=== PATIENT | female | born 1955 | race Caucasian/White ===

== ENCOUNTER 2017-03-01 00:06 | Inpatient (IN) | payer MEDICARE ==
[2017-03-01 00:28] LABS: A-aADO2 121; ARTERIAL BLD GAS O2 SATURATION 93.9 % (95-100); ARTERIAL BLOOD GAS BASE EXCESS 25.6 (-2.0-2.0); ARTERIAL BLOOD GAS FIO2 36 %; ARTERIAL BLOOD GAS PO2 58 mmHg (75-100); ARTERIAL BLOOD GAS pH 7.53 (7.35-7.45)
[2017-03-01 00:29] LABS: ALLEN TEST OK? YES
[2017-03-01 00:34] LABS: Mean Cell Volume 109.8 fl (78-100); Mean Platelet Volume 8.8 fl (6-9.5); Platelet Count 208 K/mm3 (150-450); Red Blood Count 2.87 M/mm3 (4.1-5.4); Red Cell Distribution Width 18.2 % (11.5-14.0); White Blood Count 6.5 K/mm3 (4.0-10.5)
[2017-03-01 00:38] LABS: Mean Corpuscular Hemoglobin 35.1 pg (26-32)
[2017-03-01 00:47] LABS: INR 3.03 (0.8-3.0); PROTIME 34.6 SECONDS (9.95-12.35)
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
[2017-03-01 01:11] LABS: ALBUMIN 1.6 g/dL (3.4-5.0); BILIRUBIN,TOTAL 0.5 mg/dL (0.2-1.0); Total Protein 5.3 gm/dL (6.4-8.2)
[2017-03-01 01:20] LABS: Potassium 2.5 mEq/L (3.5-5.1); TROPONIN 0.061 ng/ml (0.000-0.056)
[2017-03-01] MEDS ORDERED: POTASSIUM CHLORIDE 20 mEq IN WATER 100ML 100 ML IV ONE ×3 (01:20→03:30)
[2017-03-01 01:26] LABS: Carbon Dioxide 42.3 mEq/L (21-32)
[2017-03-01] MEDS ORDERED: Adacel Vial IM ONE ×2 (01:26→01:45)
[2017-03-01 01:30] LABS: ANION GAP 6.1 MEQ/L (5-15)
[2017-03-01 01:34] LABS: Collection Type CATH
[2017-03-01] MEDS ORDERED: Vitamin K 10 MG/ML IM ONE (01:34)
[2017-03-01 01:35] LABS: COMPLETE URINE MICROSCOPIC? YES; Ph 6.5 (5-6)
[2017-03-01 01:36] LABS: Bacteria MANY /HPF (NEGATIVE); Epithelial Cells FEW /HPF (FEW)
[2017-03-01 01:37] LABS: ADD URINE CULTURE? NO (NO)
[2017-03-01] MEDS ORDERED: Magnesium 1 Gm / 100 Ml D5W*** 200 ML IV ONE (01:38)
[2017-03-01] MEDS: Magnesium 1 Gm / 100 Ml D5W*** 100 ML IV SCH ×2 (01:43→02:16)
[2017-03-01] MEDS ORDERED: Unasyn 3GM / NaCl 100ML 3 GM/100 ML IVPB IV STA (01:44)
[2017-03-01] MEDS ORDERED: Vitamin K 10 MG/ML ONE (01:45)
[2017-03-01] MEDS ORDERED: Unasyn 3GM / NaCl 100ML 3 GM/100 ML IVPB ONE (01:51)
[2017-03-01] MEDS ORDERED: THIAMINE 200 MG/2 ML IM ONE (02:06)
[2017-03-01] MEDS ORDERED: Dextrose 5%/Water IV Soln. 250 ML 250 ML IV ONE (02:08)
[2017-03-01] MEDS ORDERED: Zithromax 500 MG/ 250 ML NaCl Premix 500 MG/250 ML IVPB IV STA (02:08)
[2017-03-01] MEDS ORDERED: Acetadote IV 200 MG/ML IV ONE ×3 (02:09→03:07)
[2017-03-01] MEDS ORDERED: THIAMINE 200 MG/2 ML ONE (02:10)
[2017-03-01] MEDS ORDERED: Zithromax 500 MG/ 250 ML NaCl Premix 500 MG/250 ML IVPB IV ONE (02:44)
[2017-03-01] MEDS ORDERED: Lasix 40 MG/4 ML IV ONE (03:02)
[2017-03-01] MEDS ORDERED: Lasix 40 MG/4 ML ONE (03:04)
[2017-03-01] MEDS ORDERED: Dextrose 5%/Water IV Soln. 500 ML 500 ML IV ONE (03:08)
[2017-03-01] MEDS ORDERED: DUONEB 0.5-3 MG/3 ml Neb IH PRN (03:30)
[2017-03-01 03:34] LABS: Total Cells Counted 100
[2017-03-01 03:35] LABS: Platelet Estimate NORMAL (NORMAL)
[2017-03-01] MEDS: Unasyn 1.5GM / NaCl 100ML 1.5 GM/100 ML IVPB IV SCH ×3 (06:38→17:18)
[2017-03-01] MEDS ORDERED: ACETADOTE IV ONE ×3 (06:40→09:00)
[2017-03-01] MEDS ORDERED: DEXTROSE IV ONE ×3 (06:40→09:00)
[2017-03-01] MEDS ORDERED: WATER IV ONE ×3 (06:40→09:00)
[2017-03-01 06:44] LABS: INR 3.18 (0.8-3.0); PROTIME 36.3 SECONDS (9.95-12.35)
[2017-03-01 08:00] LABS: ACETAMINOPHEN 38.2 ug/ml (10-30); ALBUMIN 1.7 g/dL (3.4-5.0); BILIRUBIN,TOTAL 0.4 mg/dL (0.2-1.0); Total Protein 5.1 gm/dL (6.4-8.2)
[2017-03-01 08:02] LABS: Potassium 2.6 mEq/L (3.5-5.1)
[2017-03-01 08:03] LABS: TROPONIN 0.079 ng/ml (0.000-0.056)
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
--- NOTE | 2017-03-01 08:43 | XRAY ---
Indication: Cough. Comparison: April 12, 2016. Portable chest is again underinflated with now diffuse bilateral interstitial alveolar opacities and tiny left effusion. Heart is not enlarged for AP portable technique. Bony thorax intact again with osteopenia and degenerative changes. Impression: New bilateral interstitial alveolar opacities and left effusion.
--- NOTE | 2017-03-01 08:45 | XRAY ---
Indication: Altered mental status. Slurred speech and confusion. Multiple contiguous axial images obtained through the head without contrast. Comparison: April 12, 2016. Stable normal appearing brain parenchyma, ventricles, and bony calvarium. Visualized paranasal sinuses and mastoid air cells are clear. Impression: Stable normal CT head without contrast exam. Comment: Preliminary interpretation was made by [facility]. No discrepancy. CT DI 61.17
[2017-03-01] MEDS: POTASSIUM CHLORIDE 20 mEq IN WATER 100ML 100 ML IV SCH ×4 (09:20→21:39)
[2017-03-01] MEDS: Zithromax 500 MG/ 250 ML NaCl Premix 500 MG/250 ML IVPB IV SCH (09:20)
[2017-03-01] MEDS: FOLATE 1 MG PO SCH (09:21)
[2017-03-01] MEDS: THERAGRAN MULTIVITAMIN PO SCH (09:21)
[2017-03-01] MEDS ORDERED: Sodium Chloride 0.9% 500 ML 500 ML IV SCH (09:30)
[2017-03-01] MEDS: VITAMIN B-1 100 MG PO SCH ×2 (09:31→09:33)
[2017-03-01] MEDS ORDERED: Aldactone 25 MG PO SCH (10:00)
[2017-03-01] MEDS: Vitamin B-12 500 MCG PO SCH (10:27)
--- NOTE | 2017-03-01 13:54 | XRAY ---
Indication: Elevated INR. Cholecystectomy 1996. Two-dimensional right upper quadrant abdominal sonogram performed. Comparison: None Visualized portions of the liver demonstrates mild fatty echogenicity without focal solid/cystic mass or ascites. Liver measures 15.5 cm. Gallbladder surgically absent. No mass or fluid collection in the gallbladder fossa. Common bile duct measures 4 mm. Pancreas not visualized due to overlying bowel gas. Right kidney measures 9.1 cm in length and appears sonographically unremarkable. Impression: Pancreas not visualized. Fatty liver and cholecystectomy in a otherwise negative right upper quadrant sonogram.
[2017-03-01] MEDS ORDERED: Sodium Chloride 0.9% 10 ML FLUSH Syringe IV PRN (14:35)
[2017-03-01] MEDS: SYNTHROID 88 MCG PO SCH (14:37)
--- NOTE | 2017-03-01 16:37 | XRAY ---
Indication: Ultrasound guidance for PICC line placement. Initial sonographic imaging of the right upper extremity was performed for localization of patent veins. A patent basilic vein identified above the elbow. Ultrasound guidance was then used for PICC line insertion. Full PICC line insertion is reported separately.
--- NOTE | 2017-03-01 16:42 | XRAY ---
Indication: Long-term IV access and therapy for pneumonia and decubitus ulcers. Difficulty with venous access. Informed consent obtained. Patient was placed on the fluoroscopic table in a supine position. Initial sonographic imaging of the right upper extremity was performed for localization of patent veins. The right upper extremity was then prepped and draped in sterile fashion. Tourniquet applied. 1% lidocaine plain used for local anesthesia. Using ultrasound guidance and a micropuncture needle, a basilic vein above the elbow was successfully percutaneously cannulized. A floppy tip 0.018 guidewire inserted. Tourniquet released. Needle was exchanged for a 5 [place] dilator peel-away sheath catheter. Ultimately a 5 [place] double-lumen PICC line was inserted over a longer 0.018 guidewire with the tip positioned in the distal SVC using fluoroscopic guidance. Guidewire removed. Both ports flushed with heparinized saline. Catheter was secured. Postoperative instructions and orders given. Patient discharged in good condition. Impression: Technically successful right upper extremity PICC line placement using ultrasound and fluoroscopic guidance. No immediate complications. Approximately 5 cc blood loss. Approximately 0.2 minute of fluoroscopy used.
[2017-03-01] MEDS ORDERED: Magnesium 1 Gm / 100 Ml D5W*** 100 ML IV ONE ×2 (19:35→20:00)
[2017-03-01] MEDS ORDERED: Magnesium Sulfate 1 GM/2 ML VIAL IV ONE (19:45)
[2017-03-01] MEDS: Aldactone 25 MG PO SCH (21:36)
[2017-03-02 00:22] LABS: ALBUMIN 1.3 g/dL (3.4-5.0); BILIRUBIN,TOTAL 0.3 mg/dL (0.2-1.0); Direct Bilirubin 0.17 MG/DL (0.0-0.2); Total Protein 4.6 gm/dL (6.4-8.2)
[2017-03-02] MEDS ORDERED: Lasix 20 MG/2 ML IV ONE ×2 (00:30→02:30)
[2017-03-02 00:50] LABS: A-aADO2 143; ARTERIAL BLD GAS O2 SATURATION 96.1 % (95-100); ARTERIAL BLOOD GAS BASE EXCESS 23.4 (-2.0-2.0); ARTERIAL BLOOD GAS FIO2 40 %; ARTERIAL BLOOD GAS PO2 65 mmHg (75-100); ARTERIAL BLOOD GAS pH 7.51 (7.35-7.45)
[2017-03-02 00:51] LABS: ALLEN TEST OK? YES
[2017-03-02] MEDS ORDERED: Sodium Chloride 0.9% 250 ML 250 ML IV SCH (01:00)
[2017-03-02 01:24] LABS: ALBUMIN 1.4 g/dL (3.4-5.0); ANION GAP 3.8 MEQ/L (5-15); BILIRUBIN,TOTAL 0.4 mg/dL (0.2-1.0); Carbon Dioxide 44.9 mEq/L (21-32); Potassium 3.1 mEq/L (3.5-5.1); Total Protein 4.8 gm/dL (6.4-8.2)
[2017-03-02 01:24] LABS: Mean Corpuscular Hemoglobin 34.4 pg (26-32); Mean Platelet Volume 8.4 fl (6-9.5); Platelet Count 168 K/mm3 (150-450); Red Blood Count 2.47 M/mm3 (4.1-5.4); Red Cell Distribution Width 18.1 % (11.5-14.0); White Blood Count 8.2 K/mm3 (4.0-10.5)
[2017-03-02] MEDS ORDERED: K-LYTE 25 MEQ PO ONE (01:24)
[2017-03-02] MEDS: Unasyn 1.5GM / NaCl 100ML 1.5 GM/100 ML IVPB IV SCH ×4 (01:25→17:27)
--- NOTE | 2017-03-02 01:33 | PCM.NOTE ---
Date and Time: 03/02/17127 Subjective Assessment: Called by nurse several times; pt with little urine out over the past several hours. Crackles heard on lung exam. ABG repeated, basically unchanged. Pt notes her breathing is "not good." - Review of Systems Constitutional: No Fever Respiratory: Cough, Short Of Breath Objective Exam General Appearance: mild distress, other (tachypneic) Neurologic Exam: alert, cooperative Skin Exam: warm, dry Respiratory Exam: diminished breath sounds, crackles/rales (scattered crackles throughout), No wheezing Cardiovascular Exam: regular rate/rhythm, normal heart sounds, No murmur Gastrointestinal/Abdomen Exam: soft, normal bowel sounds, tenderness ( periumbilical, mild), No guarding, No rebound Extremity Exam: swelling (3+ pitting edema to bilat LE and 1+ pitting edema L sided pannus) OBJECTIVE DATA Vital Signs: Vital Signs - 24 hr Temp Pulse Resp BP BP Pulse Ox 03/02/17 00:00 22 03/01/17 23:00 97 H 25 H 105/62 93 L 03/01/17 22:00 97 H 23 92 L 03/01/17 21:12 101 H 20 114/77 93 L 03/01/17 20:00 97.5 F 97 H 20 115/73 91 L 03/01/17 19:15 98 H 25 H 100 03/01/17 17:51 97.8 F 98 H 24 122/74 92 L 03/01/17 16:00 97.8 F 94 H 24 122/74 92 L 03/01/17 14:00 97.6 F 92 H 24 117/74 92 L 03/01/17 12:00 97.6 F 86 24 128/90 92 L 03/01/17 10:00 98.1 F 85 24 125/76 94 L 03/01/17 08:00 98.2 F 85 22 103/71 95 03/01/17 06:00 97.8 F 80 22 117/56 95 03/01/17 04:10 83 27 H 94 L 03/01/17 04:00 83 27 H 94 L 03/01/17 03:47 97.4 F 81 22 99/77 76 L 03/01/17 02:14 76 L 03/01/17 02:02 84 24 122/61 96 03/01/17 01:35 86 26 H 119/64 96 Oxygen-Last 24 hours O2 Percentage 4 Liters = 36% O2 Percentage 4 Liters = 36% O2 Percentage 4 Liters = 36% O2 Percentage 4 Liters = 36% O2 Percentage 3 Liters = 32% O2 Percentage 3 Liters = 32% O2 Percentage 3 Liters = 32% O2 Percentage 3 Liters = 32% O2 Percentage 3 Liters = 32% O2 Percentage 3 Liters = 32% O2 Percentage 3 Liters = 32% O2 Percentage 2 Liters = 28% O2 Percentage 3 Liters = 32% O2 Percentage 3 Liters = 32% Pain Assessment - Last Documented Pain Intensity 0 Pain Scale Used 0-10 Pain Scale Intake and Output: Intake & Output 02/27/17 02/28/17 03/01/17 03/02/17 11:59 11:59 11:59 11:59 Intake Total 1290 2591 Output Total 1100 750 Balance 190 1841 Weight 86.591 kg Lab Results: Lab Results-Last 24 Hours 03/01/17 03/01/17 03/01/17 Range/Units 06:12 06:12 09:15 WBC (4.0-10.5) K/mm3 RBC (4.1-5.4) M/mm3 Hgb (12.0-16.0) gm/dl Hct (35-47) % MCV (78-100) fl MCH (26-32) pg MCHC (32-36) g/dl RDW (11.5-14.0) % Plt Count (150-450) K/mm3 MPV (6-9.5) fl INR 3.18 H (0.8-3.0) Puncture Site pCO2 (35-45) mmHg pO2 (75-100) mmHg Base Excess (-2.0-2.0) O2 Saturation (94-100) g/dF ABG pH (7.35-7.45) ABG HCO3 (22-28) ABG O2 Sat (Measured) (95-100) % Dennis Test A-a Gradient a/A Ratio Hemoglobin Carboxyhemoglobin (0.0-6.9) % THgb Methemoglobin (1.4-1.5) % Temperature C POC O2 Flow Rate % Sodium 144 (136-145) mEq/L Potassium 2.6 L* (3.5-5.1) mEq/L Chloride 95 L (98-107) mEq/L Carbon Dioxide 40.0 H (21-32) mEq/L Anion Gap 13.0 (5-15) MEQ/L BUN 23 H (9-20) mg/dL Creatinine 1.01 (0.55-1.30) mg/dl Estimated GFR 59 ML/MIN Glucose 105 (70-110) MG/DL Lactic Acid (0.4-2.0) Calcium 7.5 L (8.5-10.1) mg/dL Magnesium (1.8-2.4) mg/dL Total Bilirubin 0.40 (0.2-1.0) mg/dL AST 46 H (15-37) U/L ALT 14 (12-78) U/L Alkaline Phosphatase 150 H (46-116) U/L Troponin I 0.079 H* (0.000-0.056) ng/ml Serum Total Protein 5.1 L (6.4-8.2) gm/dL Albumin 1.7 L (3.4-5.0) g/dL TSH 3rd Generation 2.431 (0.358-3.740) mIU/L Acetaminophen 38.2 H (10-30) ug/ml 03/01/17 03/01/17 03/02/17 Range/Units 18:56 23:20 00:45 WBC (4.0-10.5) K/mm3 RBC (4.1-5.4) M/mm3 Hgb (12.0-16.0) gm/dl Hct (35-47) % MCV (78-100) fl MCH (26-32) pg MCHC (32-36) g/dl RDW (11.5-14.0) % Plt Count (150-450) K/mm3 MPV (6-9.5) fl INR (0.8-3.0) Puncture Site pCO2 (35-45) mmHg pO2 (75-100) mmHg Base Excess (-2.0-2.0) O2 Saturation (94-100) g/dF ABG pH (7.35-7.45) ABG HCO3 (22-28) ABG O2 Sat (Measured) (95-100) % Dennis Test A-a Gradient a/A Ratio Hemoglobin Carboxyhemoglobin (0.0-6.9) % THgb Methemoglobin (1.4-1.5) % Temperature C POC O2 Flow Rate % Sodium (136-145) mEq/L Potassium 2.6 L* (3.5-5.1) mEq/L Chloride (98-107) mEq/L Carbon Dioxide (21-32) mEq/L Anion Gap (5-15) MEQ/L BUN (9-20) mg/dL Creatinine (0.55-1.30) mg/dl Estimated GFR ML/MIN Glucose (70-110) MG/DL Lactic Acid (0.4-2.0) Calcium (8.5-10.1) mg/dL Magnesium 2.1 (1.8-2.4) mg/dL Total Bilirubin (0.2-1.0) mg/dL AST (15-37) U/L ALT (12-78) U/L Alkaline Phosphatase (46-116) U/L Troponin I (0.000-0.056) ng/ml Serum Total Protein (6.4-8.2) gm/dL Albumin (3.4-5.0) g/dL TSH 3rd Generation (0.358-3.740) mIU/L Acetaminophen 15.7 (10-30) ug/ml 03/02/17 03/02/17 Range/Units 00:45 01:19 WBC 8.2 (4.0-10.5) K/mm3 RBC 2.47 L (4.1-5.4) M/mm3 Hgb 8.5 L (12.0-16.0) gm/dl Hct 27.9 L (35-47) % MCV 113.0 H (78-100) fl MCH 34.4 H (26-32) pg MCHC 30.5 L (32-36) g/dl RDW 18.1 H (11.5-14.0) % Plt Count 168 (150-450) K/mm3 MPV 8.4 (6-9.5) fl INR (0.8-3.0) Puncture Site LEFT RADIAL pCO2 62 H* (35-45) mmHg pO2 65 L (75-100) mmHg Base Excess 23.4 H (-2.0-2.0) O2 Saturation 92.3 L (94-100) g/dF ABG pH 7.51 H (7.35-7.45) ABG HCO3 49.5 H* (22-28) ABG O2 Sat (Measured) 96.1 (95-100) % Dennis Test YES A-a Gradient 143 a/A Ratio 0.31 Hemoglobin 9.8 Carboxyhemoglobin 3.2 (0.0-6.9) % THgb Methemoglobin 0.9 L (1.4-1.5) % Temperature 37.0 C POC O2 Flow Rate 40 % Sodium (136-145) mEq/L Potassium 3.0 L (3.5-5.1) mEq/L Chloride (98-107) mEq/L Carbon Dioxide (21-32) mEq/L Anion Gap (5-15) MEQ/L BUN (9-20) mg/dL Creatinine (0.55-1.30) mg/dl Estimated GFR ML/MIN Glucose (70-110) MG/DL Lactic Acid 1.0 (0.4-2.0) Calcium (8.5-10.1) mg/dL Magnesium (1.8-2.4) mg/dL Total Bilirubin (0.2-1.0) mg/dL AST (15-37) U/L ALT (12-78) U/L Alkaline Phosphatase (46-116) U/L Troponin I (0.000-0.056) ng/ml Serum Total Protein (6.4-8.2) gm/dL Albumin (3.4-5.0) g/dL TSH 3rd Generation (0.358-3.740) mIU/L Acetaminophen (10-30) ug/ml Radiology Exams: Radiology Procedures Category Date Time Status CHEST 1 VIEW (PORTABLE) Stat Exams 03/02/17 00:39 Ordered GUIDE FOR VASCULAR ACCESS [US] Routine Exams 03/01/17 Completed LIVER OR SPLEEN [US] Routine Exams 03/01/17 07:59 Completed PICC LINE PLACEMENT Routine Exams 03/01/17 14:10 Completed Assessment/Plan (1) Hypoxemia Current Visit: Yes Status: Acute Assessment & Plan: O2 sat to 87% on 4L so O2 increased to 5L. Labs and stat 1-view chest pending. Pt with pneumonia; does have some crackles so small amount of lasix given (20mg IV). May repeat lasix dose x 1 if BP stays over 105 systolic. Code(s): R09.02 - HYPOXEMIA (2) Pneumonia Current Visit: No Status: Acute Qualifiers: Pneumonia type: due to unspecified organism Lung location: unspecified part of lung Assessment & Plan: on IV unasyn and zithromax. Code(s): J18.9 - PNEUMONIA, UNSPECIFIED ORGANISM (3) Oliguria Current Visit: Yes Status: Acute Assessment & Plan: 100 cc out over the past 6 hours; pt does have a oliver catheter. Creatinine was normal. Small amount of lasix. Code(s): R34 - ANURIA AND OLIGURIA (4) Anasarca Current Visit: Yes Status: Acute Code(s): R60.1 - GENERALIZED EDEMA (5) Elevated INR Current Visit: Yes Status: Acute Code(s): R79.1 - ABNORMAL COAGULATION PROFILE (6) UTI (urinary tract infection) Current Visit: Yes Status: Acute Qualifiers: Urinary tract infection type: acute cystitis Code(s): N39.0 - URINARY TRACT INFECTION, SITE NOT SPECIFIED (7) Acetaminophen toxicity Current Visit: Yes Status: Acute Assessment & Plan: Follow up acetaminophen level is wnl. Unsure how much she may have ingested, so will leave decision on mucomyst up to Dr. Mathews. Code(s): T39.1X1A - POISONING BY 4-AMINOPHENOL DERIVATIVES, ACCIDENTAL, INIT
[2017-03-02 01:43] LABS: TROPONIN 0.095 ng/ml (0.000-0.056)
[2017-03-02 05:32] LABS: Mean Cell Volume 113.1 fl (78-100); Mean Corpuscular Hemoglobin 34.2 pg (26-32); Mean Platelet Volume 8.9 fl (6-9.5); Platelet Count 169 K/mm3 (150-450); Red Cell Distribution Width 17.9 % (11.5-14.0); White Blood Count 8.1 K/mm3 (4.0-10.5)
[2017-03-02 06:13] LABS: INR 1.33 (0.8-3.0); PROTIME 15.1 SECONDS (9.95-12.35)
[2017-03-02 06:26] LABS: ALBUMIN 1.3 g/dL (3.4-5.0); ANION GAP 2.4 MEQ/L (5-15); BILIRUBIN,TOTAL 0.4 mg/dL (0.2-1.0); Carbon Dioxide 44.4 mEq/L (21-32); PHOSPHOROUS 1.9 mg/dL (2.6-4.7); Potassium 3.4 mEq/L (3.5-5.1); Total Protein 4.7 gm/dL (6.4-8.2)
[2017-03-02 06:41] LABS: TROPONIN 0.104 ng/ml (0.000-0.056)
[2017-03-02 07:28] LABS: TYPE OF TEST RANDOM
[2017-03-02] MEDS ORDERED: POTASSIUM CHLORIDE 20 mEq IN WATER 100ML 100 ML IV ONE (07:46)
--- NOTE | 2017-03-02 07:50 | PCM.NOTE ---
Date and Time: 03/02/17 0750 Subjective Assessment: she is doing a little better today. She had difficulty last night with the breathing after the fluids from the Mucomyst her output has been low. Her bp has done better we are starting to get her K better she has some cramping in her legs and is eating a little better now. still very weak voice is improving. Objective Exam General Appearance: alert, other (severe anasarca pitting edema throughout her body) Neurologic Exam: oriented x 3, cooperative Skin Exam: warm, dry, pale Eye Exam: pale conjunctivae, No scleral icterus Ears, Nose, Throat Exam: moist mucous membranes Neck Exam: non-tender, supple Respiratory Exam: crackles/rales Cardiovascular Exam: regular rate/rhythm Gastrointestinal/Abdomen Exam: soft, normal bowel sounds, No tenderness Extremity Exam: pedal edema OBJECTIVE DATA Vital Signs: Vital Signs - 24 hr Temp Pulse Resp BP BP Pulse Ox 03/02/17 07:32 98 03/02/17 07:24 94 H 24 03/02/17 07:03 96 H 22 97 03/02/17 06:35 97.6 F 97 H 26 H 120/63 95 03/02/17 05:37 97 H 25 H 120/75 94 L 03/02/17 05:05 98 H 22 112/65 93 L 03/02/17 04:55 88 L 03/02/17 04:54 22 90 L 03/02/17 04:43 97 H 03/02/17 04:41 97.7 F 97 H 28 H 102/68 89 L 03/02/17 04:38 24 03/02/17 02:40 97 H 25 H 114/68 97 03/02/17 02:17 95 H 21 118/61 96 03/02/17 01:30 95 H 25 H 98/69 95 03/02/17 01:00 98.6 F 96 H 21 118/61 91 L 03/02/17 00:22 96 H 24 96/72 91 L 03/02/17 00:01 95 H 03/02/17 00:00 97 H 28 H 95/60 96 03/01/17 23:00 97 H 25 H 105/62 93 L 03/01/17 22:00 97 H 23 92 L 03/01/17 21:12 101 H 20 114/77 93 L 03/01/17 20:00 97.5 F 97 H 20 115/73 91 L 03/01/17 19:15 98 H 25 H 100 03/01/17 17:51 97.8 F 98 H 24 122/74 92 L 03/01/17 16:00 97.8 F 94 H 24 122/74 92 L 03/01/17 14:00 97.6 F 92 H 24 117/74 92 L 03/01/17 12:00 97.6 F 86 24 128/90 92 L 03/01/17 10:00 98.1 F 85 24 125/76 94 L 03/01/17 08:00 98.2 F 85 22 103/71 95 Oxygen-Last 24 hours O2 Percentage 6 Liters = 44% O2 Percentage 6 Liters = 44% O2 Percentage 6 Liters = 44% O2 Percentage 5 Liters = 40% O2 Percentage 5 Liters = 40% O2 Percentage 5 Liters = 40% O2 Percentage 5 Liters = 40% O2 Percentage 4 Liters = 36% O2 Percentage 4 Liters = 36% O2 Percentage 4 Liters = 36% O2 Percentage 4 Liters = 36% O2 Percentage 4 Liters = 36% O2 Percentage 3 Liters = 32% O2 Percentage 3 Liters = 32% O2 Percentage 3 Liters = 32% O2 Percentage 3 Liters = 32% O2 Percentage 3 Liters = 32% O2 Percentage 3 Liters = 32% Pain Assessment - Last Documented Pain Intensity 0 Pain Scale Used 0-10 Pain Scale Intake and Output: Intake & Output 02/27/17 02/28/17 03/01/17 03/02/17 11:59 11:59 11:59 11:59 Intake Total 1290 3241 Output Total 1100 1140 Balance 190 2101 Weight 86.591 kg 89.1 kg Lab Results: Lab Results-Last 24 Hours 03/01/17 03/01/17 03/01/17 Range/Units 06:12 09:15 09:15 WBC (4.0-10.5) K/mm3 RBC (4.1-5.4) M/mm3 Hgb (12.0-16.0) gm/dl Hct (35-47) % MCV (78-100) fl MCH (26-32) pg MCHC (32-36) g/dl RDW (11.5-14.0) % Plt Count (150-450) K/mm3 MPV (6-9.5) fl INR (0.8-3.0) Puncture Site pCO2 (35-45) mmHg pO2 (75-100) mmHg Base Excess (-2.0-2.0) O2 Saturation (94-100) g/dF ABG pH (7.35-7.45) ABG HCO3 (22-28) ABG O2 Sat (Measured) (95-100) % Dennis Test A-a Gradient a/A Ratio Hemoglobin Carboxyhemoglobin (0.0-6.9) % THgb Methemoglobin (1.4-1.5) % Temperature C POC O2 Flow Rate % Sodium 144 (136-145) mEq/L Potassium 2.6 L* (3.5-5.1) mEq/L Chloride 95 L (98-107) mEq/L Carbon Dioxide 40.0 H (21-32) mEq/L Anion Gap 13.0 (5-15) MEQ/L BUN 23 H (9-20) mg/dL Creatinine 1.01 (0.55-1.30) mg/dl Estimated GFR 59 ML/MIN Glucose 105 (70-110) MG/DL Lactic Acid (0.4-2.0) Calcium 7.5 L (8.5-10.1) mg/dL Phosphorus (2.6-4.7) mg/dL Magnesium (1.8-2.4) mg/dL Total Bilirubin 0.40 (0.2-1.0) mg/dL AST 46 H (15-37) U/L ALT 14 (12-78) U/L Alkaline Phosphatase 150 H (46-116) U/L Troponin I 0.079 H* (0.000-0.056) ng/ml NT-Pro-B Natriuret Pep (0-125) pg/ml Serum Total Protein 5.1 L (6.4-8.2) gm/dL Albumin 1.7 L (3.4-5.0) g/dL TSH 3rd Generation 2.431 (0.358-3.740) mIU/L Total Cortisol 19.7 (4.0-25.0) mcg/dL Acetaminophen 38.2 H (10-30) ug/ml 03/01/17 03/01/17 03/02/17 Range/Units 18:56 23:20 00:45 WBC (4.0-10.5) K/mm3 RBC (4.1-5.4) M/mm3 Hgb (12.0-16.0) gm/dl Hct (35-47) % MCV (78-100) fl MCH (26-32) pg MCHC (32-36) g/dl RDW (11.5-14.0) % Plt Count (150-450) K/mm3 MPV (6-9.5) fl INR (0.8-3.0) Puncture Site pCO2 (35-45) mmHg pO2 (75-100) mmHg Base Excess (-2.0-2.0) O2 Saturation (94-100) g/dF ABG pH (7.35-7.45) ABG HCO3 (22-28) ABG O2 Sat (Measured) (95-100) % Dennis Test A-a Gradient a/A Ratio Hemoglobin Carboxyhemoglobin (0.0-6.9) % THgb Methemoglobin (1.4-1.5) % Temperature C POC O2 Flow Rate % Sodium (136-145) mEq/L Potassium 2.6 L* (3.5-5.1) mEq/L Chloride (98-107) mEq/L Carbon Dioxide (21-32) mEq/L Anion Gap (5-15) MEQ/L BUN (9-20) mg/dL Creatinine (0.55-1.30) mg/dl Estimated GFR ML/MIN Glucose (70-110) MG/DL Lactic Acid (0.4-2.0) Calcium (8.5-10.1) mg/dL Phosphorus (2.6-4.7) mg/dL Magnesium 2.1 (1.8-2.4) mg/dL Total Bilirubin (0.2-1.0) mg/dL AST (15-37) U/L ALT (12-78) U/L Alkaline Phosphatase (46-116) U/L Troponin I (0.000-0.056) ng/ml NT-Pro-B Natriuret Pep (0-125) pg/ml Serum Total Protein (6.4-8.2) gm/dL Albumin (3.4-5.0) g/dL TSH 3rd Generation (0.358-3.740) mIU/L Total Cortisol (4.0-25.0) mcg/dL Acetaminophen 15.7 (10-30) ug/ml 03/02/17 03/02/17 03/02/17 Range/Units 00:45 00:45 01:19 WBC 8.2 (4.0-10.5) K/mm3 RBC 2.47 L (4.1-5.4) M/mm3 Hgb 8.5 L (12.0-16.0) gm/dl Hct 27.9 L (35-47) % MCV 113.0 H (78-100) fl MCH 34.4 H (26-32) pg MCHC 30.5 L (32-36) g/dl RDW 18.1 H (11.5-14.0) % Plt Count 168 (150-450) K/mm3 MPV 8.4 (6-9.5) fl INR (0.8-3.0) Puncture Site LEFT RADIAL pCO2 62 H* (35-45) mmHg pO2 65 L (75-100) mmHg Base Excess 23.4 H (-2.0-2.0) O2 Saturation 92.3 L (94-100) g/dF ABG pH 7.51 H (7.35-7.45) ABG HCO3 49.5 H* (22-28) ABG O2 Sat (Measured) 96.1 (95-100) % Dennis Test YES A-a Gradient 143 a/A Ratio 0.31 Hemoglobin 9.8 Carboxyhemoglobin 3.2 (0.0-6.9) % THgb Methemoglobin 0.9 L (1.4-1.5) % Temperature 37.0 C POC O2 Flow Rate 40 % Sodium 142 (136-145) mEq/L Potassium 3.0 L 3.1 L (3.5-5.1) mEq/L Chloride 96 L (98-107) mEq/L Carbon Dioxide 44.9 H (21-32) mEq/L Anion Gap 3.8 L (5-15) MEQ/L BUN 20 (9-20) mg/dL Creatinine 1.20 (0.55-1.30) mg/dl Estimated GFR 48 ML/MIN Glucose 118 H (70-110) MG/DL Lactic Acid 1.0 (0.4-2.0) Calcium 7.5 L (8.5-10.1) mg/dL Phosphorus (2.6-4.7) mg/dL Magnesium (1.8-2.4) mg/dL Total Bilirubin 0.40 (0.2-1.0) mg/dL AST 38 H (15-37) U/L ALT 12 (12-78) U/L Alkaline Phosphatase 140 H (46-116) U/L Troponin I 0.095 H* (0.000-0.056) ng/ml NT-Pro-B Natriuret Pep (0-125) pg/ml Serum Total Protein 4.8 L (6.4-8.2) gm/dL Albumin 1.4 L (3.4-5.0) g/dL TSH 3rd Generation (0.358-3.740) mIU/L Total Cortisol (4.0-25.0) mcg/dL Acetaminophen (10-30) ug/ml 03/02/17 03/02/17 03/02/17 Range/Units 05:20 05:20 05:20 WBC 8.1 (4.0-10.5) K/mm3 RBC 2.60 L (4.1-5.4) M/mm3 Hgb 8.9 L (12.0-16.0) gm/dl Hct 29.4 L (35-47) % MCV 113.1 H (78-100) fl MCH 34.2 H (26-32) pg MCHC 30.3 L (32-36) g/dl RDW 17.9 H (11.5-14.0) % Plt Count 169 (150-450) K/mm3 MPV 8.9 (6-9.5) fl INR 1.33 (0.8-3.0) Puncture Site pCO2 (35-45) mmHg pO2 (75-100) mmHg Base Excess (-2.0-2.0) O2 Saturation (94-100) g/dF ABG pH (7.35-7.45) ABG HCO3 (22-28) ABG O2 Sat (Measured) (95-100) % Dennis Test A-a Gradient a/A Ratio Hemoglobin Carboxyhemoglobin (0.0-6.9) % THgb Methemoglobin (1.4-1.5) % Temperature C POC O2 Flow Rate % Sodium 141 (136-145) mEq/L Potassium 3.4 L (3.5-5.1) mEq/L Chloride 98 (98-107) mEq/L Carbon Dioxide 44.4 H (21-32) mEq/L Anion Gap 2.4 L (5-15) MEQ/L BUN 21 H (9-20) mg/dL Creatinine 1.23 (0.55-1.30) mg/dl Estimated GFR 47 ML/MIN Glucose 95 (70-110) MG/DL Lactic Acid (0.4-2.0) Calcium 7.4 L (8.5-10.1) mg/dL Phosphorus 1.9 L (2.6-4.7) mg/dL Magnesium 2.0 (1.8-2.4) mg/dL Total Bilirubin 0.40 (0.2-1.0) mg/dL AST 36 (15-37) U/L ALT 11 L (12-78) U/L Alkaline Phosphatase 130 H (46-116) U/L Troponin I 0.104 H* (0.000-0.056) ng/ml NT-Pro-B Natriuret Pep (0-125) pg/ml Serum Total Protein 4.7 L (6.4-8.2) gm/dL Albumin 1.3 L (3.4-5.0) g/dL TSH 3rd Generation (0.358-3.740) mIU/L Total Cortisol (4.0-25.0) mcg/dL Acetaminophen (10-30) ug/ml // Range/Units 05:20 WBC (4.0-10.5) K/mm3 RBC (4.1-5.4) M/mm3 Hgb (12.0-16.0) gm/dl Hct (35-47) % MCV (78-100) fl MCH (26-32) pg MCHC (32-36) g/dl RDW (11.5-14.0) % Plt Count (150-450) K/mm3 MPV (6-9.5) fl INR (0.8-3.0) Puncture Site pCO2 (35-45) mmHg pO2 (75-100) mmHg Base Excess (-2.0-2.0) O2 Saturation (94-100) g/dF ABG pH (7.35-7.45) ABG HCO3 (22-28) ABG O2 Sat (Measured) (95-100) % Dennis Test A-a Gradient a/A Ratio Hemoglobin Carboxyhemoglobin (0.0-6.9) % THgb Methemoglobin (1.4-1.5) % Temperature C POC O2 Flow Rate % Sodium (136-145) mEq/L Potassium (3.5-5.1) mEq/L Chloride (98-107) mEq/L Carbon Dioxide (21-32) mEq/L Anion Gap (5-15) MEQ/L BUN (9-20) mg/dL Creatinine (0.55-1.30) mg/dl Estimated GFR ML/MIN Glucose (70-110) MG/DL Lactic Acid (0.4-2.0) Calcium (8.5-10.1) mg/dL Phosphorus (2.6-4.7) mg/dL Magnesium (1.8-2.4) mg/dL Total Bilirubin (0.2-1.0) mg/dL AST (15-37) U/L ALT (12-78) U/L Alkaline Phosphatase (46-116) U/L Troponin I (0.000-0.056) ng/ml NT-Pro-B Natriuret Pep 9177 H (0-125) pg/ml Serum Total Protein (6.4-8.2) gm/dL Albumin (3.4-5.0) g/dL TSH 3rd Generation (0.358-3.740) mIU/L Total Cortisol (4.0-25.0) mcg/dL Acetaminophen (10-30) ug/ml Radiology Exams: Radiology Procedures Category Date Time Status CHEST 1 VIEW (PORTABLE) Stat Exams 03/02/17 00:39 Taken GUIDE FOR VASCULAR ACCESS [US] Routine Exams 03/01/17 Completed LIVER OR SPLEEN [US] Routine Exams 03/01/17 07:59 Completed PICC LINE PLACEMENT Routine Exams 03/01/17 14:10 Completed Assessment/Plan (1) Malnutrition Current Visit: Yes Status: Acute Assessment & Plan: she is eating better today inr better with the vitamin k completed the mucomyst treatmetn for concern for apap toxicity and alt still normal k randy felton the aldactone and supplements. Will work on continued sodium restriction K supplement add Lasix now that k better if no signifianct output will need to start albumin infusions and work on diuresis Code(s): E46 - UNSPECIFIED PROTEIN-CALORIE MALNUTRITION (2) UTI (urinary tract infection) Current Visit: Yes Status: Acute Qualifiers: Urinary tract infection type: acute cystitis Code(s): N39.0 - URINARY TRACT INFECTION, SITE NOT SPECIFIED (3) Anasarca Current Visit: Yes Status: Acute Code(s): R60.1 - GENERALIZED EDEMA (4) Elevated INR Current Visit: Yes Status: Acute Code(s): R79.1 - ABNORMAL COAGULATION PROFILE (5) Elevated troponin Current Visit: Yes Status: Acute Code(s): R74.8 - ABNORMAL LEVELS OF OTHER SERUM ENZYMES (6) Hypokalemia Current Visit: Yes Status: Acute Code(s): E87.6 - HYPOKALEMIA (7) Hypomagnesemia Current Visit: Yes Status: Acute Code(s): E83.42 - HYPOMAGNESEMIA (8) Hypoxemia Current Visit: Yes Status: Acute Code(s): R09.02 - HYPOXEMIA (9) Acetaminophen toxicity Current Visit: Yes Status: Acute Code(s): T39.1X1A - POISONING BY 4- AMINOPHENOL DERIVATIVES, ACCIDENTAL, INIT (10) Anemia Current Visit: Yes Status: Acute Code(s): D64.9 - ANEMIA, UNSPECIFIED (11) Pressure ulcer Current Visit: Yes Status: Acute Qualifiers: Pressure ulcer location: sacral region Code(s): L89.90 - PRESSURE ULCER OF UNSPECIFIED SITE, UNSPECIFIED STAGE
[2017-03-02] MEDS: Lasix 20 MG/2 ML IV SCH ×3 (08:35→20:26)
--- NOTE | 2017-03-02 09:13 | XRAY ---
Indication: Tachypnea. Comparison: One day earlier. Portable chest again underinflated with diffuse bilateral interstitial alveolar opacities slightly worsened in the right lung with stable left effusion. Heart is not enlarged. New right arm PICC line with the tip projecting over the SVC. Comment: Preliminary interpretation was made by [facility]. No discrepancy.
[2017-03-02] MEDS: Aldactone 25 MG PO SCH ×2 (10:05→21:50)
[2017-03-02] MEDS: Vitamin B-12 500 MCG PO SCH (10:05)
[2017-03-02] MEDS: SYNTHROID 88 MCG PO SCH (10:05)
[2017-03-02] MEDS: THERAGRAN MULTIVITAMIN PO SCH (10:05)
[2017-03-02] MEDS: FOLATE 1 MG PO SCH (10:05)
[2017-03-02] MEDS: Zithromax 500 MG/ 250 ML NaCl Premix 500 MG/250 ML IVPB IV SCH (10:05)
[2017-03-02 10:57] LABS: Eosinophil 1 % (0.00-3.0); Total Cells Counted 100
[2017-03-02 11:01] LABS: ANISOCYTOSIS 1+; Platelet Estimate NORMAL (NORMAL); Poikilocytosis 1+
[2017-03-02 11:51] LABS: Mean Cell Volume 113.7 fl (78-100); Mean Corpuscular Hemoglobin 34.5 pg (26-32); Mean Platelet Volume 8.8 fl (6-9.5); Platelet Count 168 K/mm3 (150-450); Red Blood Count 2.55 M/mm3 (4.1-5.4); White Blood Count 7.2 K/mm3 (4.0-10.5)
[2017-03-02 11:54] LABS: ANION GAP 2.8 MEQ/L (5-15); Carbon Dioxide 43.9 mEq/L (21-32); Potassium 3.3 mEq/L (3.5-5.1)
[2017-03-02] MEDS ORDERED: Klor Con 10 MEQ PO ONE (12:57)
[2017-03-02] MEDS: TYLENOL 325 MG PO PRN (14:22)
[2017-03-02] MEDS ORDERED: AlbuRx 25% 50ML VIAL IV ONE (17:55)
[2017-03-02 18:54] LABS: ANION GAP 1.5 MEQ/L (5-15); Carbon Dioxide 44.8 mEq/L (21-32); Potassium 3.9 mEq/L (3.5-5.1)
[2017-03-02] MEDS: Tums EX 750 MG PO PRN (21:51)
[2017-03-02] MEDS: Protonix 40MG Tablet PO SCH (21:51)
[2017-03-03] MEDS: Unasyn 1.5GM / NaCl 100ML 1.5 GM/100 ML IVPB IV SCH ×3 (00:39→12:29)
[2017-03-03] MEDS: Lasix 20 MG/2 ML IV SCH (01:58)
[2017-03-03 05:25] LABS: INR 1.29 (0.8-3.0); PROTIME 14.6 SECONDS (9.95-12.35)
[2017-03-03 05:43] LABS: Mean Cell Volume 114.8 fl (78-100); Mean Corpuscular Hemoglobin 34.4 pg (26-32); Mean Platelet Volume 9.2 fl (6-9.5); Platelet Count 130 K/mm3 (150-450); Red Cell Distribution Width 17.8 % (11.5-14.0); White Blood Count 7.4 K/mm3 (4.0-10.5)
[2017-03-03] MEDS: TYLENOL 325 MG PO PRN (05:48)
[2017-03-03 05:52] LABS: ALBUMIN 1.4 g/dL (3.4-5.0); ALKALINE PHOSPHATASE 100 U/L (46-116); BLOOD UREA NITROGEN 21 mg/dL (9-20); CHLORIDE 99 mEq/L (98-107); Glucose 82 MG/DL (70-110); MAGNESIUM 1.6 mg/dL (1.8-2.4); Potassium 4.1 mEq/L (3.5-5.1); SGOT/AST 32 U/L (15-37); SGPT/ALT 10 U/L (12-78); SODIUM 142 mEq/L (136-145); Total Protein 4.2 gm/dL (6.4-8.2)
[2017-03-03 06:30] LABS: Red Blood Count 1.83 M/mm3 (4.1-5.4)
[2017-03-03 06:42] LABS: Carbon Dioxide > 45.0 mEq/L (21-32)
[2017-03-03] MEDS ORDERED: NORCO 5/325 MG PO ONE (06:50)
[2017-03-03] MEDS ORDERED: Sodium Chloride 0.9% 500 ML 500 ML IV ONE (06:55)
[2017-03-03] MEDS ORDERED: AlbuRx 25% 50ML VIAL IV ONE ×2 (07:26→21:00)
[2017-03-03] MEDS: Lasix 40 MG/4 ML IV SCH ×3 (07:52→20:12)
[2017-03-03] MEDS ORDERED: Cathflo Activase 2 MG IV ONE (08:30)
[2017-03-03] MEDS: Zithromax 500 MG/ 250 ML NaCl Premix 500 MG/250 ML IVPB IV SCH (09:33)
[2017-03-03] MEDS: Aldactone 25 MG PO SCH ×2 (09:33→21:28)
[2017-03-03] MEDS: FOLATE 1 MG PO SCH (09:33)
[2017-03-03] MEDS: THERAGRAN MULTIVITAMIN PO SCH (09:33)
[2017-03-03] MEDS: SYNTHROID 88 MCG PO SCH (09:34)
[2017-03-03] MEDS: Vitamin B-12 500 MCG PO SCH (09:34)
[2017-03-03] MEDS: VITAMIN B-1 100 MG PO SCH (09:34)
[2017-03-03] MEDS: Levofloxacin 250MG Tablet PO SCH (13:31)
[2017-03-03] MEDS ORDERED: Lasix 20 MG/2 ML IV ONE (14:00)
[2017-03-03 17:05] LABS: ALBUMIN 1.7 g/dL (3.4-5.0); ANION GAP 2.5 MEQ/L (5-15); BILIRUBIN,TOTAL 0.6 mg/dL (0.2-1.0); Carbon Dioxide 44.8 mEq/L (21-32); Potassium 4.2 mEq/L (3.5-5.1); Total Protein 4.7 gm/dL (6.4-8.2)
[2017-03-03] MEDS ORDERED: NORCO 5/325 MG PO PRN (18:15)
[2017-03-03] MEDS ORDERED: Phenergan 25 MG INJ IV PRN (18:15)
--- NOTE | 2017-03-03 18:24 | PCM.NOTE ---
Date and Time: 03/03/171816 Subjective Assessment: patient evaluated at 07:30, 12:30 and 18:00 today she was placed on bipap this am with the planned blood transfusion and has tolerated that well with FiO2 at 40% she is eating> She is complaining of her chronic back pain currently not relieved with tylenol. She has not had bowel movement. Her urine output increased greatly last night after the albumin with the lasix. She has not had fever or vomiting she did have some heart burn previously no active or ongoing bleeding noted. She states she wants to go home soon. Objective Exam General Appearance: mild distress, other (anasarca with 4+ edema throughout and large eccymosis on legs) Neurologic Exam: alert, oriented x 3, cooperative Skin Exam: ecchymosis, pale Eye Exam: pale conjunctivae, No scleral icterus Ears, Nose, Throat Exam: dry mucous membranes Neck Exam: non-tender, supple Respiratory Exam: crackles/rales Cardiovascular Exam: tachycardia, No murmur Gastrointestinal/Abdomen Exam: soft, normal bowel sounds Extremity Exam: pedal edema OBJECTIVE DATA Vital Signs: Vital Signs - 24 hr Temp Pulse Resp BP BP Pulse Ox 03/03/17 18:00 98.8 F 97 H 23 114/70 96 03/03/17 16:54 98.8 F 101 H 28 H 130/81 84 L 03/03/17 16:00 97 H 20 03/03/17 15:00 95 H 21 104/63 95 03/03/17 13:00 97.8 F 100 H 20 91/70 99 03/03/17 12:00 100 H 20 03/03/17 11:00 97.5 F 99 H 22 100/70 100 03/03/17 08:53 103 H 18 116/65 99 03/03/17 08:00 98.9 F 104 H 28 H 120/69 97 03/03/17 07:47 102 H 26 H 97 03/03/17 07:00 105 H 25 H 122/58 93 L 03/03/17 05:00 101 H 28 H 123/59 89 L 03/03/17 04:15 102 H 24 83 L 03/03/17 04:00 102 H 29 H 03/03/17 03:00 97.4 F 102 H 22 123/59 83 L 03/03/17 00:53 103 H 24 114/59 94 L 06/15/17 00:01 105 H 03/03/17 00:00 26 H 03/02/17 23:00 105 H 28 H 124/66 90 L 03/02/17 21:00 97.4 F 104 H 20 118/70 92 L 03/02/17 19:53 104 H 03/02/17 19:16 104 H 24 95 03/02/17 19:00 97.8 F 104 H 26 H 120/63 93 L Oxygen-Last 24 hours O2 Percentage 40% O2 Percentage 4 Liters = 36% O2 Percentage 40% O2 Percentage 50% O2 Percentage 50% O2 Percentage 50% O2 Percentage 50% O2 Percentage 50% O2 Percentage 50% O2 Percentage 6 Liters = 44% O2 Percentage 5 Liters = 40% O2 Percentage 5 Liters = 40% O2 Percentage 5 Liters = 40% O2 Percentage 5 Liters = 40% Pain Assessment - Last Documented Pain Intensity 5 Pain Scale Used 0-10 Pain Scale Intake and Output: Intake & Output 03/01/17 03/02/17 03/03/17 03/04/17 11:59 11:59 11:59 11:59 Intake Total 1290 3241 1543 750 Output Total 1100 1140 3325 475 Balance 190 2101 -1782 275 Weight 86.591 kg 89.1 kg 89.9 kg Lab Results: Lab Results-Last 24 Hours 03/02/17 03/03/17 03/03/17 Range/Units 18:35 05:07 05:07 WBC 7.4 (4.0-10.5) K/mm3 RBC 1.83 L* (4.1-5.4) M/mm3 Hgb 6.3 L* (12.0-16.0) gm/dl Hct 21.0 L (35-47) % MCV 114.8 H (78-100) fl MCH 34.4 H (26-32) pg MCHC 30.0 L (32-36) g/dl RDW 17.8 H (11.5-14.0) % Plt Count 130 L (150-450) K/mm3 MPV 9.2 (6-9.5) fl INR (0.8-3.0) Sodium 141 142 (136-145) mEq/L Potassium 3.9 4.1 (3.5-5.1) mEq/L Chloride 99 99 (98-107) mEq/L Carbon Dioxide 44.8 H > 45.0 H* (21-32) mEq/L Anion Gap 1.5 L (5-15) MEQ/L BUN 20 21 H (9-20) mg/dL Creatinine 1.22 1.03 (0.55-1.30) mg/dl Estimated GFR 47 58 ML/MIN Glucose 122 H 82 (70-110) MG/DL Calcium 7.6 L 7.8 L (8.5-10.1) mg/dL Phosphorus 2.0 L (2.6-4.7) mg/dL Magnesium 1.6 L (1.8-2.4) mg/dL Total Bilirubin 0.50 (0.2-1.0) mg/dL AST 32 (15-37) U/L ALT 10 L (12-78) U/L Alkaline Phosphatase 100 (46-116) U/L Serum Total Protein 4.2 L (6.4-8.2) gm/dL Albumin 1.4 L (3.4-5.0) g/dL Slides for Path Review YES ABO Group Rh Factor Antibody Screen (NEGATIVE) Crossmatch (COMPATIBLE) 03/03/17 03/03/17 03/03/17 Range/Units 05:07 06:05 06:05 WBC (4.0-10.5) K/mm3 RBC (4.1-5.4) M/mm3 Hgb (12.0-16.0) gm/dl Hct (35-47) % MCV (78-100) fl MCH (26-32) pg MCHC (32-36) g/dl RDW (11.5-14.0) % Plt Count (150-450) K/mm3 MPV (6-9.5) fl INR 1.29 (0.8-3.0) Sodium (136-145) mEq/L Potassium (3.5-5.1) mEq/L Chloride (98-107) mEq/L Carbon Dioxide (21-32) mEq/L Anion Gap (5-15) MEQ/L BUN (9-20) mg/dL Creatinine (0.55-1.30) mg/dl Estimated GFR ML/MIN Glucose (70-110) MG/DL Calcium (8.5-10.1) mg/dL Phosphorus (2.6-4.7) mg/dL Magnesium (1.8-2.4) mg/dL Total Bilirubin (0.2-1.0) mg/dL AST (15-37) U/L ALT (12-78) U/L Alkaline Phosphatase (46-116) U/L Serum Total Protein (6.4-8.2) gm/dL Albumin (3.4-5.0) g/dL Slides for Path Review ABO Group O Rh Factor POSITIVE Antibody Screen NEGATIVE (NEGATIVE) Crossmatch COMPATIBLE COMPATIBLE (COMPATIBLE) 03/03/17 03/03/17 Range/Units 16:42 16:42 WBC (4.0-10.5) K/mm3 RBC (4.1-5.4) M/mm3 Hgb 8.6 L (12.0-16.0) gm/dl Hct 27.5 L (35-47) % MCV (78-100) fl MCH (26-32) pg MCHC (32-36) g/dl RDW (11.5-14.0) % Plt Count (150-450) K/mm3 MPV (6-9.5) fl INR (0.8-3.0) Sodium 141 (136-145) mEq/L Potassium 4.2 (3.5-5.1) mEq/L Chloride 98 (98-107) mEq/L Carbon Dioxide 44.8 H (21-32) mEq/L Anion Gap 2.5 L (5-15) MEQ/L BUN 25 H (9-20) mg/dL Creatinine 1.08 (0.55-1.30) mg/dl Estimated GFR 55 ML/MIN Glucose 83 (70-110) MG/DL Calcium 8.0 L (8.5-10.1) mg/dL Phosphorus (2.6-4.7) mg/dL Magnesium (1.8-2.4) mg/dL Total Bilirubin 0.60 (0.2-1.0) mg/dL AST 34 (15-37) U/L ALT 10 L (12-78) U/L Alkaline Phosphatase 104 (46-116) U/L Serum Total Protein 4.7 L (6.4-8.2) gm/dL Albumin 1.7 L (3.4-5.0) g/dL Slides for Path Review ABO Group Rh Factor Antibody Screen (NEGATIVE) Crossmatch (COMPATIBLE) Radiology Exams: Radiology Procedures Category Date Time Status CHEST 1 VIEW (PORTABLE) Stat Exams 03/02/17 00:39 Completed Multi-Disciplinary Progress Notes: Multi-Disciplinary Progress Notes 03/03/17 15:05 Case Management Note by Ekta Acosta CHECKED WITH ROSY MCCLURE, PT'S NURSE - NO FAMILY HAVE CALLED OR VISITED. Initialized on 03/03/17 15:05 - END OF NOTE 03/03/17 14:56 Case Management Note by Ekta Acosta ATTEMPTED TO REVIEW DISCHARGE PLAN WITH PT. WEARING BIPAP MASK SO DIFFICULT TO CONVERSE, ALSO, SOB NOTED WITH ANY CONVERSATION. DID REPORT THAT SHE IS LIVING WITH OTHERS, BUT UNABLE TO MAKE OUT WHO SHE IS LIVING WITH. AT THIS TIME UNABLE TO DETERMINE IF/WHAT SERVICES OR EQUIP ARE BEING USED AT HOME, OR IF PT WAS FUNCTIONING INDEPENDENTLY. DID DISCUSS A REHAB STAY WITH PT GIVEN THE SEVERITY OF HER ILLNESS, IF IT WAS NEEDED ON DISCHARGE. PT REPORTS THAT SHE WOULD GO TO [facility] FOR REH[facility] STAY IF NEEDED. RODOLFO ATTEMPTS TO REACH YOSHI, PT'S NIECE, BY PHONE. WILL CONTINUE TO FOLLOW AND ASSESS FOR ALL DC NEEDS. Initialized on 03/03/17 14:56 - END OF NOTE Assessment/Plan (1) Malnutrition Current Visit: Yes Status: Acute Assessment & Plan: with the anasarca improving minimally with the spironolactone and lasix increase the dose as blood pressure allows monitor K. Improve protein po intake use albumin prn to help increase oncotic pressure mobilize the 3rd spacing. use bipap to help with the pulmonary edema Transfused 2 U PRBC recheck shows good hgb response. She has had a little decrease in urine output will give another dose of albumin tonight with next dose of lasix continue oliver for accurate I/O monitor weight. Monitor phos for refeeding syndrome wean O2 support as tolerated Urine culture with MSSA will change to levofloxacin to cover this and any potential pneumonia although it appears the pulmonary symptoms mush more likely due to the anasarca. will check echo tomorrow. Code(s): E46 - UNSPECIFIED PROTEIN-CALORIE MALNUTRITION (2) UTI (urinary tract infection) Current Visit: Yes Status: Acute Qualifiers: Urinary tract infection type: acute cystitis Code(s): N39.0 - URINARY TRACT INFECTION, SITE NOT SPECIFIED (3) Anasarca Current Visit: Yes Status: Acute Code(s): R60.1 - GENERALIZED EDEMA (4) Elevated INR Current Visit: Yes Status: Acute Code(s): R79.1 - ABNORMAL COAGULATION PROFILE (5) Elevated troponin Current Visit: Yes Status: Acute Code(s): R74.8 - ABNORMAL LEVELS OF OTHER SERUM ENZYMES (6) Hypokalemia Current Visit: Yes Status: Acute Code(s): E87.6 - HYPOKALEMIA (7) Hypomagnesemia Current Visit: Yes Status: Acute Code(s): E83.42 - HYPOMAGNESEMIA (8) Hypoxemia Current Visit: Yes Status: Acute Code(s): R09.02 - HYPOXEMIA (9) Acetaminophen toxicity Current Visit: Yes Status: Acute Code(s): T39.1X1A - POISONING BY 4- AMINOPHENOL DERIVATIVES, ACCIDENTAL, INIT (10) Anemia Current Visit: Yes Status: Acute Code(s): D64.9 - ANEMIA, UNSPECIFIED (11) Pressure ulcer Current Visit: Yes Status: Acute Qualifiers: Pressure ulcer location: sacral region Code(s): L89.90 - PRESSURE ULCER OF UNSPECIFIED SITE, UNSPECIFIED STAGE
[2017-03-03] MEDS: Protonix 40MG Tablet PO SCH (21:29)
[2017-03-03] MEDS: Tums EX 750 MG PO PRN (22:50)
[2017-03-04] MEDS: Lasix 40 MG/4 ML IV SCH ×2 (01:49→07:24)
[2017-03-04] MEDS ORDERED: PROTONIX 40 MG IV IV ONE ×2 (02:09→02:40)
[2017-03-04] MEDS ORDERED: Sodium Chloride 0.9% 100 ML IVPB 100 ML IV ONE (02:42)
[2017-03-04 03:51] LABS: White Blood Count 7.2 K/mm3 (4.0-10.5)
[2017-03-04 03:52] LABS: Mean Corpuscular Hemoglobin 32.3 pg (26-32); Mean Platelet Volume 8.9 fl (6-9.5); Platelet Count 108 K/mm3 (150-450); Red Blood Count 1.98 M/mm3 (4.1-5.4); Red Cell Distribution Width 21.1 % (11.5-14.0)
[2017-03-04] MEDS ORDERED: Lactated Ringers 1,000 ML IV SCH (06:00)
[2017-03-04] MEDS ORDERED: Pepcid 20 MG VIAL IV SCH (07:00)
--- NOTE | 2017-03-04 08:00 | PCM.DS ---
Discharge Summary Date of Admission: 03/01/17 03:18 Date of Discharge: 03/04/2017 Admitting Physician: CRIS KAUFMAN Consults: Consults on Case 03/01/17 15:13 Nutritional Consult ROUTINE Primary Care Provider: CRIS KAUFMAN Allergies Allergies butorphanol [From Stadol] Allergy (Verified 03/01/17 00:21) diazepam [From Valium] Allergy (Verified 03/01/17 00:21) esomeprazole [From Nexium] Allergy (Verified 03/01/17 00:21) morphine Allergy (Verified 03/01/17 00:21) nalbuphine [From Nubain] Allergy (Verified 03/01/17 00:21) promethazine HCl [From Phenergan] Allergy (Verified 03/01/17 00:21) Hospital Summary - Hospital Course Hospital Course: Ms. Coles is a 61 y/o female patient of Dr. Vallejo who presented from home after her roommates reported she was not eating for many days only drinking and was sleeping and getting weaker. She is not a very good historian and many of the details are lacking and no family is available. She reports her symptoms have only started to worsen over the last few weeks. She fell and required the EMS to come get her up twice the second time brought her to the ED where she was edematous drowsy and hypoxic. She was also found to have elevated tylenol level and it was unclear when her last tylenol dose was. She stated it was that morning 16 hours prior. Her liver enzymes were normal but her INR was elevated on no anticoagulants. She had very low albumin and diffuse anasarca that was new from a visit in [place] in July. She had microcytic anemia and large ecchymosis throughout her body. She had no known active bleeding and was suffering only from her chronic back pain. She had previously had accidental overdoses on her pain and anxiety medications that had been stopped. She was on ambien from Dr. Vallejo on her pill counts the number remaining was appropriate. She denies any current overdose or taking any unprescribed medications. With the unclear history she was given Vitamin K, Thiamine, B12, Folate and treated with acetylcysteine infusion protocol over 24 hours for the Tylenol overdose. She was also profoundly hypokalemic and this was replaced IV and PO. The mucomyst resulted in worsening over her fluid overload. She had PICC placed in right upper extremity due to poor access. After K improved lasix and aldactone were started for diuresis and albumin infusions helped to mobilized the anasarca she has received a total of 37.5g of Albumin. Her anemia worsened with this to 6.5 with no active bleeding she was transfused 2 Units and improvement was seen. She was placed on bipap at 10/5 with 40% FiO2 and oxygenating well on this. Her diuresis continued until about 02:00 on 03/04 she began having large amounts of bright red bloody stools per rectum X4. Hgb worsened to 6.4 and she is being transfused an additional 3 Units of PRBC. Liver ultrasound was remarkable only for fatty liver She had UTI with MSSA she is currently on levaquin for this and has remained afebrile. Cardiac echocardiogram is pending. With the persistent volume overload and the new GI bleeding the patient is being transferred to higher acuity of care pursuant to medicaid guidelines with this being a Critical access hospital and she continues to develop new problems with the new GI bleeding this am at the 72 hours of inpatient stay. Discussed with Hospitalist at [facility] at 09:00 03/04/2017 who kindly accepted patient for transfer to their ICU. - Vitals & Intake/Output Vital Signs: Vital Signs Temperature 97.6 F 03/04/17 06:00 Pulse Rate 90 03/04/17 06:47 Respiratory Rate 22 03/04/17 06:47 Blood Pressure 109/61 03/04/17 06:00 O2 Sat by Pulse Oximetry 96 03/04/17 06:47 Oxygen-Last Documented O2 Percentage 40% Intake & Output: Intake & Output 03/01/17 03/02/17 03/03/17 03/04/17 11:59 11:59 11:59 11:59 Intake Total 1290 3241 1543 1392 Output Total 1100 1140 3325 2475 Balance 190 2101 -1782 -1083 Weight 86.591 kg 89.1 kg 89.9 kg 88.813 kg - Lab Result Diagrams: 03/04/17 08:46 03/03/17 16:42 Lab Results-Last 24 Hrs: Lab Results-Last 24 Hours 03/03/17 03/03/17 03/03/17 Range/Units 05:07 06:05 06:05 WBC 7.4 (4.0-10.5) K/mm3 RBC 1.83 L* (4.1-5.4) M/mm3 Hgb 6.3 L* (12.0-16.0) gm/dl Hct 21.0 L (35-47) % MCV 114.8 H (78-100) fl MCH 34.4 H (26-32) pg MCHC 30.0 L (32-36) g/dl RDW 17.8 H (11.5-14.0) % Plt Count 130 L (150-450) K/mm3 MPV 9.2 (6-9.5) fl Sodium (136-145) mEq/L Potassium (3.5-5.1) mEq/L Chloride (98-107) mEq/L Carbon Dioxide (21-32) mEq/L Anion Gap (5-15) MEQ/L BUN (9-20) mg/dL Creatinine (0.55-1.30) mg/dl Estimated GFR ML/MIN Glucose (70-110) MG/DL Calcium (8.5-10.1) mg/dL Total Bilirubin (0.2-1.0) mg/dL AST (15-37) U/L ALT (12-78) U/L Alkaline Phosphatase (46-116) U/L Serum Total Protein (6.4-8.2) gm/dL Albumin (3.4-5.0) g/dL Stool Occult Bld Scrn Slides for Path Review YES ABO Group O Rh Factor POSITIVE Antibody Screen NEGATIVE (NEGATIVE) Crossmatch COMPATIBLE COMPATIBLE (COMPATIBLE) 03/03/17 03/03/17 03/03/17 Range/Units 06:05 06:05 16:42 WBC (4.0-10.5) K/mm3 RBC (4.1-5.4) M/mm3 Hgb (12.0-16.0) gm/dl Hct (35-47) % MCV (78-100) fl MCH (26-32) pg MCHC (32-36) g/dl RDW (11.5-14.0) % Plt Count (150-450) K/mm3 MPV (6-9.5) fl Sodium 141 (136-145) mEq/L Potassium 4.2 (3.5-5.1) mEq/L Chloride 98 (98-107) mEq/L Carbon Dioxide 44.8 H (21-32) mEq/L Anion Gap 2.5 L (5-15) MEQ/L BUN 25 H (9-20) mg/dL Creatinine 1.08 (0.55-1.30) mg/dl Estimated GFR 55 ML/MIN Glucose 83 (70-110) MG/DL Calcium 8.0 L (8.5-10.1) mg/dL Total Bilirubin 0.60 (0.2-1.0) mg/dL AST 34 (15-37) U/L ALT 10 L (12-78) U/L Alkaline Phosphatase 104 (46-116) U/L Serum Total Protein 4.7 L (6.4-8.2) gm/dL Albumin 1.7 L (3.4-5.0) g/dL Stool Occult Bld Scrn Slides for Path Review ABO Group Rh Factor Antibody Screen (NEGATIVE) Crossmatch COMPATIBLE COMPATIBLE (COMPATIBLE) 03/03/17 03/04/17 03/04/17 Range/Units 16:42 02:15 02:30 WBC 7.2 (4.0-10.5) K/mm3 RBC 1.98 L (4.1-5.4) M/mm3 Hgb 8.6 L 6.4 L* (12.0-16.0) gm/dl Hct 27.5 L 20.4 L (35-47) % MCV 103.0 H (78-100) fl MCH 32.3 H (26-32) pg MCHC 31.4 L (32-36) g/dl RDW 21.1 H (11.5-14.0) % Plt Count 108 L (150-450) K/mm3 MPV 8.9 (6-9.5) fl Sodium (136-145) mEq/L Potassium (3.5-5.1) mEq/L Chloride (98-107) mEq/L Carbon Dioxide (21-32) mEq/L Anion Gap (5-15) MEQ/L BUN (9-20) mg/dL Creatinine (0.55-1.30) mg/dl Estimated GFR ML/MIN Glucose (70-110) MG/DL Calcium (8.5-10.1) mg/dL Total Bilirubin (0.2-1.0) mg/dL AST (15-37) U/L ALT (12-78) U/L Alkaline Phosphatase (46-116) U/L Serum Total Protein (6.4-8.2) gm/dL Albumin (3.4-5.0) g/dL Stool Occult Bld Scrn POSITIVE Slides for Path Review ABO Group Rh Factor Antibody Screen (NEGATIVE) Crossmatch (COMPATIBLE) - Radiology Exams Ordered Rad Exams-Entire Visit: Radiology Procedures Category Date Time Status ECHO W/2D AND DOPPLER [US] Routine Exams 03/04/17 09:00 Ordered - Procedures and Test Procedures and Tests throughout Hospitalization: Therapy Orders & Screens 03/01/17 04:19 PT Screen per Nursing Assess ONCE Comment: Protocol Order Physician Instructions: Greater than 3 points order PT Admission Screenin Reason For Exam: Triggered on Admission Diagnosis: Pneumonia, low K+, r/o APAP overdose, elevated INR, low mag, Anasarca, UTI Open Wound/Cellutlitis/Pressure Ulcers: Yes Acute Fx/ORIF/Change in wt bearing status: No Severe MUSCULOSKELETAL pain: No ADL Dysfunction: Yes Acute CVA w/Hemiparesis/Hemiplegia: No Decreased Functional Mobility/Strength: Yes Sprain/Strain: No Acute Post-op Mobility Dysfunction: No Total Points: 9 Smoking Cessation Education ONCE Comment: Diagnosis: Pneumonia, low K+, r/o APAP overdose, elevated INR, low mag, Anasarca, UTI Smoking Status: Current every day smoker Do you dip or chew tobacco: No 03/01/17 15:13 ST Eval & Treat (MD Order) .as ordered Comment: Physician Instructions: Reason For Exam: Evaluate: Yes Treat: Yes Reason for Eval: swallowing difficulty Diagnosis: Pneumonia, low K+, r/o APAP overdose, elevated INR, low mag, Anasarca, UTI 03/01/17 19:15 Respiratory Nebulizer PRN Comment: DUONEB Q4PRN FOR SOB/WHEEZING Diagnosis: Pneumonia, low K+, r/o APAP overdose, elevated INR, low mag, Anasarca, UTI 03/03/17 07:47 BiPap/CPAP Assessment ROUTINE Comment: Diagnosis: Pneumonia, low K+, r/o APAP overdose, elevated INR, low mag, Anasarca, UTI Discharge Exam General Appearance: no apparent distress, alert, other (diffuse 4+ anasarca throughout minimally improved from presentation.) Neurologic Exam: alert, oriented x 3, cooperative Skin Exam: normal color, warm, dry Eye Exam: PERRL, EOMI, eyes nml inspection, pale conjunctivae, No scleral icterus Ears, Nose, Throat Exam: dry mucous membranes Neck Exam: normal inspection, non-tender, supple, full range of motion Respiratory Exam: normal breath sounds, crackles/rales, other (on bipap 10/5 at 40% FiO2) Cardiovascular Exam: regular rate/rhythm, normal heart sounds, edema Gastrointestinal/Abdomen Exam: soft, normal bowel sounds, No tenderness, No mass Extremity Exam: normal inspection, normal range of motion Back Exam: normal inspection, normal range of motion, No CVA tenderness, No vertebral tenderness Pelvic Exam: deferred Rectal Exam: deferred Final Diagnosis/Problem List - Final Discharge Diagnosis/Problem (1) Malnutrition Current Visit: Yes Status: Acute (2) UTI (urinary tract infection) Current Visit: Yes Status: Acute (3) Anasarca Current Visit: Yes Status: Acute (4) Elevated INR Current Visit: Yes Status: Acute (5) Elevated troponin Current Visit: Yes Status: Acute (6) Hypokalemia Current Visit: Yes Status: Acute (7) Hypomagnesemia Current Visit: Yes Status: Acute (8) Hypoxemia Current Visit: Yes Status: Acute (9) Acetaminophen toxicity Current Visit: Yes Status: Acute (10) Anemia Current Visit: Yes Status: Acute (11) Pressure ulcer Current Visit: Yes Status: Acute - Discharge Discharge Date: 03/04/17 Disposition: DC TO [facility] Condition: Serious Prescriptions: No Action Zolpidem Tartrate 10 mg PO HS Meloxicam 15 mg [Meloxicam 15 MG] 15 mg PO DAILY Cetirizine HCl 10 mg PO DAILY Fluoxetine HCl 20 mg PO DAILY Aspirin 81 mg PO DAILY AMITRIPTYLINE HCL 50 mg Tab [AMITRIPTYLINE HCL 50 mg Tablet] 50 mg PO DAILY Clonidine HCl 0.1 mg [Catapres 0.1 MG] 0.1 mg PO DAILY Ropinirole HCl 0.5 mg [Requip 0.5 MG] 0.5 mg PO HS Levothyroxine Sodium 88 Mcg [Synthroid 88 Mcg] 88 mcg PO DAILY Follow up with: HARMAN VALLEJO [COURTESY STAFF] - 1 Week
[2017-03-04 08:52] LABS: Mean Corpuscular Hemoglobin 31.6 pg (26-32); Mean Platelet Volume 9.2 fl (6-9.5); Platelet Count 98 K/mm3 (150-450); Red Blood Count 2.72 M/mm3 (4.1-5.4); Red Cell Distribution Width 18.2 % (11.5-14.0); White Blood Count 6.5 K/mm3 (4.0-10.5)
[2017-03-04 09:07] LABS: INR 1.28 (0.8-3.0); PROTIME 14.5 SECONDS (9.95-12.35)
[2017-03-04 09:10] LABS: PTT 37.1 SECONDS (25.3-37.0)
[2017-03-04 09:31] LABS: ALBUMIN 1.5 g/dL (3.4-5.0); ANION GAP 1.4 MEQ/L (5-15); BILIRUBIN,TOTAL 0.9 mg/dL (0.2-1.0); Carbon Dioxide 44.3 mEq/L (21-32); PHOSPHOROUS 2.4 mg/dL (2.6-4.7); Potassium 4.5 mEq/L (3.5-5.1)
[2017-03-04] MEDS: Vitamin B-12 500 MCG PO SCH (10:02)
[2017-03-04] MEDS: VITAMIN B-1 100 MG PO SCH (10:02)
[2017-03-04] MEDS: Levofloxacin 250MG Tablet PO SCH (10:02)
[2017-03-04] MEDS: SYNTHROID 88 MCG PO SCH (10:02)
[2017-03-04] MEDS: Aldactone 25 MG PO SCH (10:02)
[2017-03-04] MEDS: THERAGRAN MULTIVITAMIN PO SCH (10:02)
[2017-03-04] MEDS: FOLATE 1 MG PO SCH (10:02)
[2017-03-04 10:18] VITALS: BP 122/65; PULSE 96; O2SAT 94
--- NOTE | 2017-03-05 15:53 | ECHO ---
DATE OF PROCEDURE: 03/04/2017 INDICATIONS FOR PROCEDURE: Fluid overload with respiratory failure. The M-mode and 2D and Doppler echocardiogram including color-flow Doppler shows low-normal contractility of the left ventricle with an ejection fraction calculated at 52%. The left ventricle is normal in size with dimension of 5.2 cm. The septal wall thickness is normal at 0.8 cm. The left ventricular posterior wall is normal at 1.0 cm. The apex is not well visualized. The right ventricle is not well visualized. The left atrium is normal with a dimension of 3.6 cm. The right atrium appears normal in size and the atrial septum is intact. The aortic valve leaflets are thickened. There is mild to moderate aortic regurgitation present. There is moderate mitral regurgitation present. The posterior mitral valve leaflet motion is decreased. There is mild tricuspid regurgitation at present. The right ventricular systolic pressure is calculated to be 43 mmHg. The pulmonic valve is not well visualized. The aortic root is normal with a dimension of 2.7 cm. There is no pericardial effusion present. 1. MODERATE MITRAL REGURGITATION. 2. MILD TO MODERATE AORTIC REGURGITATION. 3. MILD TRICUSPID REGURGITATION WITH MILD TO MODERATE PULMONARY HYPERTENSION. 4. THE MITRAL VALVE EA VELOCITY RATIO IS NORMAL AT 1.2.
== END 2017-03-04 11:50 | disposition home or self-care (01) | DRG 640 ==
LOC: ED 00:06 → ICU 03:18
PROVIDERS: ADMIT Family Medicine; ATTEND Family Medicine
DX: E46 Unspecified protein-calorie malnutrition (principal); J96.02 Acute respiratory failure with hypercapnia; J96.01 Acute respiratory failure with hypoxia; N39.0 Urinary tract infection, site not specified; K92.2 Gastrointestinal hemorrhage, unspecified; R60.1 Generalized edema; R79.1 Abnormal coagulation profile; R79.89 Other specified abnormal findings of blood chemistry; E87.6 Hypokalemia; E83.42 Hypomagnesemia; R09.02 Hypoxemia; T39.1X1A Poisoning by 4-Aminophenol derivatives, accidental (unintentional), initial encounter; D64.9 Anemia, unspecified; L89.90 Pressure ulcer of unspecified site, unspecified stage; Z79.899 Other long term (current) drug therapy
CPT/HCPCS: 36000; 36415; 36430; 36569; 36600; 51702; 70450; 71010; 76705; 76937; 77001; 80048; 80053; 80076; 80307; 80320; 81000; 82140; 82270; 82375; 82533; 82550; 82803; 83605; 83735; 83880; 83986; 84100; 84132; 84443; 84484; 84597; 85014; 85018; 85025; 85027; 85610; 85730; 86850; 86900; 86901; 86922; 87040; 87077; 87086; 87186; 90471; 90715; 93005; 93041; 93306; 94002; 94003; 94640; 94770; 96365; 96366; 96367; 96368; 96372; 99285; C1769; G0481; J0132; J0295; J0456; J1642; J1940; J2997; J3430; J3475; J3480; P9016; P9047; A9270-GY

== ENCOUNTER 2024-11-08 09:58 | Emergency (ER) | payer MEDICARE, OTHER ==
[2024-11-08] MEDS ORDERED: CARDIZEM DRIP 100 MG/100 ML D5W 100 ML IV ONE (10:08)
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
[2024-11-08 10:32] VITALS: TEMP 97
[2024-11-08] MEDS: CARDIZEM DRIP 100 MG/100 ML D5W 100 ML IV PRN (10:43)
[2024-11-08 10:51] LABS: Hematocrit 33.6 % (34.1-44.9); Hemoglobin 10.8 g/dL (11.2-15.7); Mean Cell Volume 103.1 fL (79.4-94.8); Mean Corpuscular Hemoglobin 33.1 pg (25.6-32.2); Mean Corpuscular Hgb Concent. 32.1 g/dL (32.2-35.5); Platelet Count 246 x10^3/uL (182-369); Red Blood Count 3.26 x10^6/uL (3.93-5.22); Red Cell Distribution Width 14.2 % (11.7-14.4); White Blood Count 11.7 x10^3/uL (3.98-10.04)
[2024-11-08] MEDS: Cardizem IV 50 MG/10 ML IV ONE (10:54)
[2024-11-08 11:06] LABS: INR 1.63 (0.8-3.0); PROTIME 17.2 SECONDS (9.4-12.5); PTT 26.4 SECONDS (25.1-36.5)
[2024-11-08 11:17] LABS: ALBUMIN 3.2 g/dL (3.5-5.0); ANION GAP 15.1 MEQ/L (5-15); BILIRUBIN,TOTAL 2.1 mg/dL (0.2-1.3); Calcium 8.4 mg/dL (8.4-10.2); Creatinine 1 0.75 mg/dL (0.52-1.04); EST GLOMERULAR FILTRATION RATE 85.6 ML/MIN; Potassium 4.8 mmol/L (3.5-5.1); Total Protein 5.8 g/dL (6.3-8.2)
[2024-11-08 11:18] LABS: Lymphocytes 8 % (19.3-51.7); Monocyte 7 % (4.7-12.5); Myelocyte 1 %; Neutrophils 84 % (34.0-71.1); Nucleated Red Blood Cell 7 %; Total Cells Counted 100
[2024-11-08 11:20] LABS: Platelet Estimate NORMAL (NORMAL)
[2024-11-08 11:21] LABS: Macrocytosis 2+; Polychromasia 1+
[2024-11-08 11:34] LABS: INFLUENZA B NEGATIVE (NEGATIVE); RESPIRATORY SYNCTIAL VIRUS NEGATIVE (NEGATIVE); SARS-CoV-2 Xpert Express NEGATIVE (NEGATIVE)
--- NOTE | 2024-11-08 11:35 | XRAY ---
Indication: Short of breath. Comparison: May 24, 2017 Portable chest demonstrates new diffuse bilateral patchy airspace disease without large effusion. Heart borderline enlarged. Again chronic findings including right hemidiaphragm elevation, left costophrenic calcified granuloma, osteopenia, bony degenerative changes, and double curvature scoliosis.
[2024-11-08 11:43] LABS: ABO TYPING O; Antibody Screen NEGATIVE (NEGATIVE); RH TYPING POSITIVE
[2024-11-08 12:02] LABS: INFLUENZA A POSITIVE (NEGATIVE)
[2024-11-08 12:21] LABS: Appearance Cloudy (Clear); Bacteria Many /HPF (None Seen); Bilirubin Negative (Negative); Blood Negative (Negative); Epithelial Cells Rare /HPF (None Seen); Glucose, Urine Negative (Negative); Ketones Trace (Negative); Leukocyte Esterase Negative (Negative); Nitrite Negative (Negative); Protein,Urine Dip 30 (Negative); Specific Gravity 1.025 (1.005-1.030)
--- NOTE | 2024-11-08 12:43 | XRAY ---
Indication: Left abdomen pain 3 weeks. Colitis. Multiple contiguous axial images obtained through the abdomen and pelvis without contrast. Comparison: None Lung bases demonstrate diffuse bilateral patchy airspace disease with tiny bibasilar effusions. Heart is enlarged. Diffuse anasarca. Old right iliac/pelvic bone fractures with beam artifact from fixation hardware limits exam. Noncontrasted stomach and bowel loops appear nonobstructed. Normal appendix. No abnormal bowel wall thickening. Incidental cholecystectomy clips and tiny splenic calcified granulomas. No free fluid/air. Remaining liver, pancreas, spleen, adrenal glands, kidneys, ureters, bladder, and uterus are unremarkable for noncontrast exam. Mild scattered aortoiliac calcifications without AAA. Osseous structures intact with osteopenia, minimal/mild multilevel lumbar degenerative spondylosis, moderate elongated thoracolumbar levorotoscoliosis centered at L2, and mild degenerative changes both hips. Impression: 1. Diffuse bilateral lung patchy airspace disease. 2. Cardiomegaly with tiny bibasilar effusions and diffuse anasarca. Rule out mild/early CHF versus fluid overload. 3. Old right innominate/pelvic bone fractures with beam artifact from fixation hardware. 4. Chronic findings including osteopenia, multilevel degenerative spondylosis, levorotoscoliosis, degenerative changes both hips, arteriosclerotic disease, and old granulomatous disease.
[2024-11-08] MEDS ORDERED: Tamiflu 75MG Capsule PO ONE (13:03)
[2024-11-08] MEDS ORDERED: ROCEPHIN 2 GM/100 ML NACL 2 GM/100 ML IVPB IV ONE (13:03)
[2024-11-08] MEDS ORDERED: Pepcid 20 MG VIAL IV ONE (13:03)
[2024-11-08] MEDS: ROCEPHIN 2 GM/100 ML NACL 2 GM/100 ML IVPB IV ONE (13:08)
[2024-11-08] MEDS: Tamiflu 75MG Capsule PO ONE (13:09)
[2024-11-08] MEDS: Pepcid 20 MG VIAL IV ONE (13:09)
[2024-11-08] MEDS ORDERED: Zithromax 500 MG/ 250 ML NaCl Premix 500 MG/250 ML IVPB IV ONE (13:49)
[2024-11-08] MEDS: Zithromax 500 MG/ 250 ML NaCl Premix 500 MG/250 ML IVPB IV STA (13:50)
[2024-11-08 14:36] LABS: PHOSPHOROUS 3.4 mg/dL (2.5-4.5)
[2024-11-08] MEDS ORDERED: NEXTERONE 360 MG/200 ML BAG 360 MG/200 ML PLAST..BAG IV ONE (15:31)
[2024-11-08] MEDS: NEXTERONE 360 MG/200 ML BAG 360 MG/200 ML PLAST..BAG IV SCH (15:32)
[2024-11-08 19:00] VITALS: PULSE 116
[2024-11-08 19:01] VITALS: BP 116/68; RESP 18
[2024-11-08 21:49] VITALS: O2SAT 94
== END 2024-11-08 19:04 | disposition short-term general hospital (02) ==
LOC: ED 09:58
DX: K72.00 Acute and subacute hepatic failure without coma (principal); K92.2 Gastrointestinal hemorrhage, unspecified; I48.20 Chronic atrial fibrillation, unspecified; D64.9 Anemia, unspecified; J10.00 Influenza due to other identified influenza virus with unspecified type of pneumonia; R74.8 Abnormal levels of other serum enzymes; R53.1 Weakness; R06.02 Shortness of breath; K92.1 Melena; R10.32 Left lower quadrant pain; Z72.0 Tobacco use
CPT/HCPCS: 0241U; 36415; 71045; 74176; 80053; 81001; 83605; 83735; 83880; 84100; 84484; 85025; 85610; 85730; 86850; 86900; 86901; 87077; 87086; 87186; 93005; 93041; 96365; 96366; 96368; 96374; 96375; 99291; 99285; J0456; J0696; A9270-GY; J0282